=== PATIENT | female | born 1985 | race Caucasian/White ===

== ENCOUNTER 2020-04-11 12:14 | Emergency (ER) | payer OTHER ==
[~2020-04-11] VITALS: Ht 165.1 cm; Wt 91.0 kg
[2020-04-11 12:28] VITALS: BP 131/85
--- NOTE | 2020-04-11 13:02 | PHYS DOC ---
Past History Past Medical History: No Pertinent History Past Surgical History: No Surgical History Alcohol Use: None Adult General Chief Complaint Chief Complaint: VAGINAL BLEEDING HPI HPI Patient is a 34-year-old female who presents for vaginal bleeding. Onset was 1 week ago. Nothing known makes better or worse. She is asymptomatic. Patient reports having unremarkable menstrual cycle, most previous started on March 24 and ended March 28. It was normal in consistency and length. Patient has been asymptomatic ever since but reports since 1 week time without any known inciting event, trauma, sexual activity or other foreign body, she has had vaginal spotting that is been intermittent with slight tinged red blood on tissue paper. She has seen her PCP about this this past week, she has work-up consisting of laboratory analysis pending. She could not wait for results of serum test and concerned because continued waxing and waning of her vaginal spotting prompting her to visit our ER for evaluation. 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 See HPI for pertinent positives and negative responses, other barbour all other systems are ne gative, non-pertinent or non-contributory Allergies Allergies Allergies Coded Allergies Type Severity Reaction Last Updated Verified Penicillins Allergy Unknown 04/11/20 Yes peanut Allergy Unknown 04/11/20 Yes shellfish derived Allergy Unknown 04/11/20 Yes wheat Allergy Unknown 04/11/20 Yes Physical Exam Physical Exam Constitutional: Well developed, well nourished, no acute distress, non-toxic appearance. HENT: Normocephalic, atraumatic, bilateral external ears normal, oropharynx moist, no oral exudates, nose normal. Eyes: PERRLA, EOMI, conjunctiva normal, no discharge. Neck: Normal range of motion, no tenderness, supple, no stridor. Cardiovascular: Heart rate regular, sinus rhythm, no murmurs rubs or gallops Lungs & Thorax: Bilateral breath sounds clear to auscultation Abdomen: Bowel sounds normal, soft, no tenderness, no masses, no pulsatile masses. Nonsurgical abdomen, no peritoneal signs Skin: Warm, dry, no erythema, no rash. Back: No tenderness, no CVA tenderness. Extremities: No tenderness, no cyanosis, no clubbing, ROM intact, no edema. Neurologic: Alert and oriented X 3, grossly normal motor & sensory function, no focal deficits noted. Psychologic: Affect normal, judgement normal, mood normal. Current Patient Data Vital Signs Vital Signs Date Time Temp Pulse Resp B/P (MAP) Pulse Ox O2 Delivery O2 Flow Rate FiO2 04/11/20 12:28 97.8 90 18 131/85 (100) 97 Room Air EKG EKG [] Radiology/Procedures Radiology/Procedures [] Course & Med Decision Making Course & Med Decision Making Well-appearing patient seen on immediate ER arrival ABCs unremarkable Comprehensive history and physical exam obtained Discussed likely benign and self-limiting nature of patient's vaginal spotting, discussed little role in further diagnostic studies in ER setting Patient has follow-up with PCP in 4 days time, I advised her to keep this. Patient to follow-up on recently obtained laboratory analysis with consideration for future diagnostic imaging work-up as indicated Discussed this may be an acute presentation of more serious pathology although unlikely Strict return precautions discussed with good understanding by patient, all questions and concerns addressed prior to ER departure in stable condition Dragon Disclaimer Dragon Disclaimer This electronic medical record was generated, in whole or in part, using a voice recognition dictation system. Departure Departure: Impression: Primary Impression: Vaginal spotting Disposition: HOME/RESIDENCE PRIOR TO ADM Condition: STABLE Referrals: CHIO MARQUES (PCP) Justification of Admission: Justification of Admission: Justification of Admission Dx: N/A MARTINEZ MEZA DO Apr 11, 2020 13:02
== END 2020-04-11 13:16 | disposition home or self-care (01) ==
LOC: ER 12:14
DX: N93.9 Abnormal uterine and vaginal bleeding, unspecified (principal); Z88.0 Allergy status to penicillin; Z91.013 Allergy to seafood; Z91.018 Allergy to other foods; Z91.010 Allergy to peanuts
CPT/HCPCS: 81025; 99282